=== PATIENT | female | born 1950 | race Caucasian/White ===

== ENCOUNTER 2016-09-05 10:58 | Day surgery (SDC) | payer MEDICARE, OTHER ==
[2016-09-04 10:54] LABS: ABSOLUTE EOSINOPHILS # (AUTO) 0.1 10^3/uL (0.0-0.6); ABSOLUTE LYMPHOCYTES (AUTO) 2.2 10^3/uL (0.5-4.7); ABSOLUTE MONOCYTES (AUTO) 0.5 10^3/uL (0.1-1.4); ABSOLUTE NEUT (AUTO) 3.5 10^3/uL (1.7-8.2); BASOPHILS % (AUTO) 0.5 % (0-2); EOSINOPHILS % (AUTO) 1.4 % (0-6); HEMOGLOBIN 12.4 g/dL (12.0-15.5); HGB HCT DIFFERENCE 1.2; LYMPHOCYTES % (AUTO) 35.2 % (13-45); MEAN CORPUSCULAR HEMOGLOBIN 29.2 pg (27.0-33.4); MEAN CORPUSCULAR HGB CONC 34.4 g/dL (32.0-36.0); MEAN CORPUSCULAR VOLUME 85 fl (80-97); MONOCYTES % (AUTO) 7.7 % (3-13); RED BLOOD COUNT 4.24 10^6/uL (3.72-5.28); RED CELL DISTRIBUTION WIDTH 13.9 % (11.5-14.0); SEGMENTED NEUTROPHILS % (AUTO) 55.2 % (42-78); WHITE BLOOD COUNT 6.4 10^3/uL (4.0-10.5)
[2016-09-04 10:58] LABS: APPEARANCE,URINE CLEAR; BILIRUBIN,URINE NEGATIVE (NEGATIVE); GLUCOSE, URINE NEGATIVE (NEGATIVE); KETONES,URINE NEGATIVE (NEGATIVE); LEUKOCYTE ESTERASE,URINE TRACE (NEGATIVE); NITRITE,URINE NEGATIVE (NEGATIVE); PROTEIN,URINE NEGATIVE (NEGATIVE); URINE SPECIFIC GRAVITY 1.005; UROBILINOGEN,URINE NEGATIVE mg/dL (<2.0)
[2016-09-04 11:27] LABS: ANION GAP 14 (5-19); BLOOD UREA NITROGEN 11 mg/dL (7-20); CARBON DIOXIDE 30 mmol/L (22-30); CHLORIDE 97 mmol/L (98-107); CREATININE RESULT 0.73 mg/dL (0.52-1.25); GLUCOSE 102 mg/dL (75-110); POTASSIUM 4.2 mmol/L (3.6-5.0); SODIUM 140.8 mmol/L (137-145)
--- NOTE | 2016-09-04 18:52 | EKG REPORT ---
SEVERITY:- NORMAL ECG - SINUS RHYTHM : Confirmed by: Bhupinder Perez 04-Sep-2016 18:51:32
[~2016-09-05 10:58] MED LIST: CEFAZOLIN 2 GM/D5W RTU 2 GM/50 ML RTUPB IV PRN; LACTATED RINGERS 1000 ML IV PRN; LIDOCAINE 0.5% INJ-PF (5 MG/ML) 50 ML SDV SUBCUT PRN
[2016-09-05] MEDS ORDERED: LIDOCAINE 1% INJ-PF (10 MG/ML) 30 ML SDV ONE (11:12)
[2016-09-05] MEDS ORDERED: BUPIVACAINE HCL 0.5 % INJ/PF 30 ML SDV ONE (11:12)
[2016-09-05] MEDS ORDERED: ACETAMINOPHEN 100 ML IV ONE (11:23)
[2016-09-05] MEDS ORDERED: FENTANYL CITRATE INJ/PF 100 MCG/2 ML AMPUL ONE (11:23)
[2016-09-05] MEDS ORDERED: PROPOFOL INJ 200 MG/20 ML VIAL IV ONE (11:23)
[2016-09-05] MEDS ORDERED: MIDAZOLAM 2 MG/2 ML INJ ONE (11:23)
[2016-09-05] MEDS ORDERED: DEXMEDETOMIDINE INJ 80 MCG/20 ML VIAL IV ONE (11:23)
[2016-09-05] MEDS ORDERED: FENTANYL CITRATE INJ/PF 100 MCG/2 ML AMPUL IV PRN ×3 (11:27)
[2016-09-05] MEDS ORDERED: MORPHINE SULFATE 10 MG/ML INJ IV PRN ×2 (11:27→12:29)
[2016-09-05] MEDS ORDERED: DIPHENHYDRAMINE HCL 50 MG/ML VIAL IV PRN (11:27)
[2016-09-05] MEDS ORDERED: MEPERIDINE HCL/PF INJ 25 MG/1 ML DISP.SYRIN IV PRN (11:27)
[2016-09-05] MEDS ORDERED: ONDANSETRON HCL INJ/PF 4 MG/2 ML SDV IV PRN ×2 (11:27→12:29)
[2016-09-05] MEDS ORDERED: PROMETHAZINE HCL INJ 25 MG/1 ML VIAL IV PRN ×2 (11:27)
[2016-09-05] MEDS ORDERED: KETAMINE HCL INJ 500 MG/10 ML VIAL ONE (11:52)
[2016-09-05] MEDS ORDERED: HYDROCODONE/ACETAMINOPHEN 5-325 MG TABLET PO PRN (12:29)
--- NOTE | 2016-09-05 12:31 | PDOC DISCHARGE SUMMARY ---
Discharge Summary (SDC) - Discharge Final Diagnosis: LEFT wrist de Quervain's tenosynovitis Date of Surgery: 09/05/16 Discharge Date: 09/05/16 Condition: Good Treatment or Instructions: Schedule Follow Up w/ Dr. Bobby Bridges @ [facility] for Surgery to be seen in 10-14 days or as scheduled [place]: [place]: [place]: May remove dressing on postop day #3, keep incision covered and dry. Ice and elevate May begin finger range of motion attempting to make full fist. Stool softener of choice when on pain medication. Prescriptions: Hydrocodone/Acetaminophen [[place] 5-325 mg Tablet] 1 tab PO Q6 PRN #25 tablet PRN Reason: Discharge Diet: As Tolerated Respiratory Treatments at Home: Deep Breathing/Coughing Discharge Activity: Balance Activity w/Rest, No Lifting Over 10 Pounds, No Lifting/Push/Pulling Report the Following to Your Physician Immediately: Unusual Bleeding, Redness, Swelling, Warmth, Increased Soreness, Numbness, Tingling Sensation
--- NOTE | 2016-09-05 12:31 | Operative Report ---
Operative Report DATE OF SURGERY: 09/05/16 PREOPERATIVE DIAGNOSIS: Left de Quervain's tenosynovitis POSTOPERATIVE DIAGNOSIS: Same plus ganglion cyst first dorsal compartment OPERATION: First dorsal compartment release, tenosynovectomy with excision ganglion cyst SURGEON: BEENA ROWLAND ANESTHESIA: LMAC COMPLICATIONS: None ESTIMATED BLOOD LOSS: Minimal PROCEDURE: Indication for above procedure: 66-year-old female with long-standing history of CMC arthritis presented to my office with left wrist pain. On examination she had findings of CMC arthritis but the majority of her discomfort was consistent with de Quervain's tenosynovitis. At that point we discussed treatment options including CMC arthroplasty with concomitant first dorsal compartment release versus isolated first dorsal compartment release understanding that she may have discomfort from CMC arthritis remaining and ultimately require CMC arthroplasty. After discussing risks and benefits of both the joint decision was made to proceed with isolated first dorsal compartment release. Procedure In Detail: Patient was seen and evaluated in the preoperative holding area. The LEFT upper extremity was initialized and marked. Patient received 2g of Ancef IV for bacterial prophylaxis. Patient was taken back to the operative room where transferred to the operative table and placed under general anesthesia. Once they were adequately anesthetized a nonsterile tourniquet was placed on the upper extremity. A surgical team debriefing was performed ensuring all instrumentation was available, the surgical procedure was discussed with possible concerns reviewed. The upper extremity was prepped with chlorhexidine and alcohol and draped in a sterile fashion. A timeout was done identifying correct patient, procedure and extremity everyone in attendance agree with this and verbalized no concerns. The extremity was exsanguinated the tourniquet was inflated to 250 mmHg. Longitudinal skin incision was made over the first dorsal compartment. Blunt dissection was performed and branches of the superficial radial nerve were identified and protected throughout the entirety of the case. The first dorsal compartment was then identified. And excised along its dorsal margin to avoid instability of the first dorsal compartment tendons. Patient small ganglion cyst was originating from the retinaculum from the first dorsal compartment thus this section of the first dorsal was excised. I then isolated the APL and EPB identifying a sub-compartment for the EPB which was released in its entirety. There was multiple splits of the EPL identified. Tenoynovitis was verified within the first dorsal compartment and tenosynovectomy was performed. Through all wrist range of motion is there was not evidence of first dorsal compartment tendon instability. The tourniquet was then deflated any peripheral vasculature was coagulated with bipolar cautery until the wound was dry. The wound was then irrigated with normal saline. Skin was closed with running 4-0 Monocryl subcuticular suture reinforced with Dermabond and Steri- Strips. Wound was dressed with 4 x 4's and a soft dressing. Sponge counts, instrument counts, needle counts counts were correct. Patient was then awoken from anesthesia. Transferred from the operating room table to the operating room stretcher. There was no intraoperative complications patient tolerated procedure well stable to PACU. Postoperative plan: Patient will follow-up in the office with me in 2 weeks for wound check.
[2016-09-05 14:13] VITALS: BP 126/79
[2016-09-05] MEDS ORDERED: METOCLOPRAMIDE HCL INJ/PF 10 MG/2 ML SDV ONE (14:32)
[2016-09-05] MEDS ORDERED: LIDOCAINE 2% INJ-PF (20 MG/ML) 10 ML AMPUL ONE (14:32)
[2016-09-05] MEDS ORDERED: GLYCOPYRROLATE INJ 0.4 MG/2 ML VIAL ONE (14:32)
[2016-09-05] MEDS ORDERED: ONDANSETRON HCL INJ/PF 4 MG/2 ML SDV ONE (14:32)
[2016-09-05] MEDS ORDERED: KETOROLAC TROMETHAMINE 60 MG/2 ML SDV ONE (14:32)
== END 2016-09-05 14:10 | disposition home or self-care (01) ==
LOC: OROUT 10:58
PROVIDERS: ATTEND Orthopaedic Surgery
PROC: 0LN60ZZ Release Left Lower Arm and Wrist Tendon, Open Approach (ICD-10-PCS; 2016-09-05)
PROC: 0RBV0ZZ Excision of Left Metacarpophalangeal Joint, Open Approach (ICD-10-PCS; principal; 2016-09-05 13:30)
DX: M65.4 Radial styloid tenosynovitis [de Quervain] (principal); M67.432 Ganglion, left wrist; M18.9 Osteoarthritis of first carpometacarpal joint, unspecified; M18.12 Unilateral primary osteoarthritis of first carpometacarpal joint, left hand; E78.00 Pure hypercholesterolemia, unspecified; I10 Essential (primary) hypertension; E11.9 Type 2 diabetes mellitus without complications; Z79.899 Other long term (current) drug therapy; Z88.8 Allergy status to other drugs, medicaments and biological substances; Z79.82 Long term (current) use of aspirin; Z79.1 Long term (current) use of non-steroidal anti-inflammatories (NSAID); Z79.84 Long term (current) use of oral hypoglycemic drugs
CPT/HCPCS: 93005; 36415; 82962; 85025; 80048; 81001; 83036; 71020; 93010; 25111; 25000; J2250; J1885; J3010; J3490 ×3; J2765; J2405; J2704; J0690; J0131; 1810

== ENCOUNTER 2016-09-30 01:40 | Emergency (ER) | payer MEDICARE, OTHER ==
[2016-09-30] MEDS ORDERED: IPRATROPIUM/ALBUTEROL 0.5-2.5 MG/3 ML AMPUL NEB ONE (03:01)
[2016-09-30] MEDS ORDERED: HYDROCODONE/ACETAMINOPHEN 5-325 MG TABLET PO ONE (03:01)
--- NOTE | 2016-09-30 03:03 | ER Document Report ---
ED Respiratory Problem - General Chief Complaint: Cough Stated Complaint: COUGH Time Seen by Provider: 09/30/16 03:01 Notes: Patient is a 66-year-old female that comes emergency department for chief complaint of cough, feeling chills/fever/, and some congestion for the past 3 days. She denies sinus pain, she reports a mildly irritated throat, she states the cough is nonproductive. She does not smoke, she denies a history of smoking , COPD, or asthma. She states she has been exposed to 2 different people who had upper respiratory symptoms. She has had pneumonia in the past, had both pneumonia and influenza vaccines. TRAVEL OUTSIDE OF THE [place] IN LAST 30 DAYS: No - Related Data Allergies/Adverse Reactions: latex [Latex] Allergy (Severe, Verified 06/01/15 08:41) Skin irritation povidone-iodine [From Betadine] Allergy (Intermediate, Verified 05/26/15 08:02) SEVERE RASH Soap [From Betadine] Allergy (Intermediate, Verified 05/26/15 08:02) SEVERE RASH atorvastatin [From Lipitor] Allergy (Verified 08/25/16 11:24) Muscle weakness Past Medical History - General Information source: Patient - Social History Smoking Status: Never Smoker Frequency of alcohol use: None Drug Abuse: None Lives with: Family Family History: Reviewed & Not Pertinent - Past Medical History Cardiac Medical History: Reports: Hx Hypertension Denies: Hx Coronary Artery Disease, Hx Heart Attack Pulmonary Medical History: Reports: Hx Pneumonia - 4 times in my life, last time 10/15 years ago Denies: Hx Asthma, Hx Bronchitis Neurological Medical History: Denies: Hx Cerebrovascular Accident, Hx Seizures Musculoskeltal Medical History: Reports Hx Arthritis - left hand, right knee Surgical Hx: Negative - Immunizations Hx Diphtheria, Pertussis, Tetanus Vaccination: Yes Hx Pneumococcal Vaccination: 02/19/16 Review of Systems - Review of Systems Constitutional: See HPI EENT: No symptoms reported Cardiovascular: No symptoms reported Respiratory: See HPI Gastrointestinal: No symptoms reported Genitourinary: No symptoms reported Female Genitourinary: No symptoms reported Musculoskeletal: No symptoms reported Skin: No symptoms reported Hematologic/Lymphatic: No symptoms reported Neurological/Psychological: No symptoms reported Physical Exam - Vital signs Vitals: Temp Pulse Resp BP Pulse Ox 97.9 F 80 16 132/63 H 96 09/30/16 05:04 09/30/16 05:04 09/30/16 05:04 09/30/16 05:04 09/30/16 05:04 Interpretation: Normal - General General appearance: Appears well, Alert In distress: None - HEENT Head: Normocephalic, Atraumatic Eyes: Normal Conjunctiva: Normal Extraocular movements intact: Yes Eyelashes: Normal Pupils: PERRL Ears: Normal External canal: Normal Tympanic membrane: Normal Nasal: Normal Mouth/Lips: Normal Mucous membranes: Normal Pharynx: Other - noted post nasal drip, otherwise unremarkable Neck: Normal - Respiratory Respiratory status: No respiratory distress Chest status: Nontender Breath sounds: Nonproductive cough - occassional congested sounded cough. No: Decreased air movement, Wheezing Chest palpation: Normal - Cardiovascular Rhythm: Regular. No: Tachycardia Heart sounds: Normal auscultation, S1 appreciated, S2 appreciated Murmur: No - Abdominal Inspection: Normal Distension: No distension Bowel sounds: Normal Tenderness: Nontender. No: Tender, Guarding Organomegaly: No organomegaly - Back Back: Normal, Nontender. No: Tender - Extremities General upper extremity: Normal inspection, Nontender, Normal color, Normal ROM , Normal temperature General lower extremity: Normal inspection, Nontender, Normal color, Normal ROM , Normal temperature, Normal weight bearing. 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 She requested and DuoNeb and stated she felt better afterwards. Mild postnasal drip, no wheezing , no hypoxia, no signs of respiratory distress. Suspect patient does have an upper respiratory virus. Because of patient's history of getting pneumonia, geriatric age, and symptoms of cough and fever patient will be covered with doxycycline antibiotic, discussed follow-up with her provider within the next several days, discussed return precautions, patient states understanding and agreement. - Vital Signs Vital signs: Temp Pulse Resp BP Pulse Ox 97.9 F 80 16 132/63 H 96 09/30/16 05:04 09/30/16 05:04 09/30/16 05:04 09/30/16 05:04 09/30/16 05:04 - Laboratory Result Diagrams: 09/30/16 03:39 09/30/16 03:39 Laboratory results interpreted by me: 09/30/16 09/30/16 03:39 03:39 WBC 10.8 H Hct 35.6 L Sodium 134.5 L Chloride 95 L Glucose 135 H Discharge - Discharge Clinical Impression: Cough Upper respiratory infection Qualifiers: URI type: unspecified URI Qualified Code(s): J06.9 - Acute upper respiratory infection, unspecified Condition: Stable Disposition: HOME, SELF-CARE Additional Instructions: Blood work does not show any acute enteritis, chest x-ray does not show pneumonia at this time. Recommend taking the doxycycline antibiotic, take decongestant, take Tylenol or ibuprofen for chills, drink plenty of fluids, and rest. Follow-up with your primary care provider within the week. Return to emergency department for any concerning or worsening symptoms. Prescriptions: Doxycycline Hyclate 100 mg PO BID #14 capsule Referrals: LAYNE LUONG FNP [Primary Care Provider] - Follow up as needed
[2016-09-30] MEDS ORDERED: ACETAMINOPHEN 325 MG TABLET PO ONE (03:31)
[2016-09-30 03:48] LABS: ABSOLUTE EOSINOPHILS # (AUTO) 0.1 10^3/uL (0.0-0.6); ABSOLUTE LYMPHOCYTES (AUTO) 2.4 10^3/uL (0.5-4.7); ABSOLUTE MONOCYTES (AUTO) 0.8 10^3/uL (0.1-1.4); ABSOLUTE NEUT (AUTO) 7.6 10^3/uL (1.7-8.2); BASOPHILS % (AUTO) 0.4 % (0-2); EOSINOPHILS % (AUTO) 0.7 % (0-6); HEMATOCRIT 35.6 % (36.0-47.0); HEMOGLOBIN 12.2 g/dL (12.0-15.5); LYMPHOCYTES % (AUTO) 21.9 % (13-45); MEAN CORPUSCULAR HEMOGLOBIN 29.4 pg (27.0-33.4); MEAN CORPUSCULAR HGB CONC 34.3 g/dL (32.0-36.0); MEAN CORPUSCULAR VOLUME 86 fl (80-97); MONOCYTES % (AUTO) 7.1 % (3-13); RED BLOOD COUNT 4.14 10^6/uL (3.72-5.28); RED CELL DISTRIBUTION WIDTH 13.9 % (11.5-14.0); SEGMENTED NEUTROPHILS % (AUTO) 69.9 % (42-78); WHITE BLOOD COUNT 10.8 10^3/uL (4.0-10.5)
[2016-09-30 04:41] LABS: ANION GAP 14 (5-19); BLOOD UREA NITROGEN 7 mg/dL (7-20); CALCIUM 9.1 mg/dL (8.4-10.2); CARBON DIOXIDE 26 mmol/L (22-30); CHLORIDE 95 mmol/L (98-107); CREATININE RESULT 0.67 mg/dL (0.52-1.25); GLUCOSE 135 mg/dL (75-110); POTASSIUM 3.7 mmol/L (3.6-5.0); SODIUM 134.5 mmol/L (137-145)
[2016-09-30 05:06] VITALS: BP 132/63
== END 2016-09-30 05:07 | disposition home or self-care (01) ==
LOC: ER 01:40
DX: J06.9 Acute upper respiratory infection, unspecified (principal); R05 Cough; R50.9 Fever, unspecified; R09.81 Nasal congestion
CPT/HCPCS: 94640; 99283; 36415; 85025; 80048; 71020; A9270 ×2; J7620

== ENCOUNTER → 2017-05-18 | Outpatient (CLI) | payer MEDICARE, OTHER ==
--- NOTE | 2017-05-18 13:15 | WOMENS IMAGING REPORT ---
EXAM DESCRIPTION: 3D SCREENING MAMMO BILAT COMPLETED DATE/TIME: 05/18/2017 9:09 am REASON FOR STUDY: SCREENING MAMMO Z12.31 ENCNTR SCREEN MAMMOGRAM FOR MALIGNANT NEOPLASM OF JOEL COMPARISON: 2013 to 2015 TECHNIQUE: Standard craniocaudal and mediolateral oblique views of each breast recorded using digita l acquisition and breast tomosynthesis. LIMITATIONS: None. FINDINGS: No masses, calcifications or architectural distortion. No areas of suspicion. Read with the assistance of CAD. .[facility] - R2 Cenova Version 1.3 .[facility] - R2 Cenova Version 1.3 .[facility] - R2 Cenova Version 2.4 .[facility] - R2 Cenova Version 2.4 .[facility] - R2 Cyber Reverse Engineer Version 9.2 IMPRESSION: NORMAL MAMMOGRAM. BIRADS 1. BREAST DENSITY: b. There are scattered areas of fibroglandular density. BIRAD: 1 NEGATIVE RECOMMENDATION: ROUTINE SCREENING COMMENT: The patient has been notified of the results by letter per SA requirements. Additional no tification policies are in place for contacting patient with suspicious or incomplete findings. Quality ID #225: The [employer] recommends an annual screening mammogram for women aged 40 years or over. This facility utilizes a reminder system to ensure that all patients receive reminder letters, and/or direct phone calls for appointments. This includes reminders for routine scr eening mammograms, diagnostic mammograms, or other Breast Imaging Interventions when appropriate. Th is patient will be placed in the appropriate reminder system. The [employer] (ACR) has developed recommendations for screening MRI of the breast s in certain patient populations, to be used in conjunction with mammography. Breast MRI surveillanc e may be appropriate for women with more than 20% lifetime risk of developing breast cancer as deter mined by genetic testing, significant family history of the disease, or history of mantle radiation f or Hodgkins Disease. ACR Practice Guidelines 2008. DBT Technology DBT is a type of tomographic mammography. With conventional mammography, overlapping breast tissue ma y make lesions difficult to detect, even with good compression. DBT uses an x-ray tube that rotates a round the breast, taking images at different angles. These images are then combined to create thin sl ices of the breast that the radiologist can view as a 3D reconstruction. The [employer] unit can perform full-field digital mammograms (2D imaging); or DBT (3D imaging); or both, in a combination mode that quickly performs both the mammogram and the tomosynthesis scan while the breast is still compressed. PQRS 6045F: Fluoroscopic imaging is not utilized for breast tomosynthesis. TECHNICAL DOCUMENTATION: FINDING NUMBER: (1) ASSESSMENT: (1) JOB ID: [id number] [employer]- All Rights Reserved
== END ==
LOC: WI 07:29
PROVIDERS: ATTEND Nurse Practitioner
DX: Z12.31 Encounter for screening mammogram for malignant neoplasm of breast (principal)
CPT/HCPCS: 77063; G0202; 77067

== ENCOUNTER → 2017-11-07 | Outpatient (CLI) | payer MEDICARE, OTHER ==
--- NOTE | 2017-11-07 12:03 | RADIOLOGY REPORT (SQ) ---
EXAM DESCRIPTION: VENOUS BILATERAL LOWER COMPLETED DATE/TIME: 11/07/2017 11:43 am REASON FOR STUDY: CRAMPS/SPASM, PAIN IN RT LT LEG M25.20 FLAIL JOINT, UNSPECIFIED JOINT M79.605 PAIN IN LEFT LEG M79.604 PAIN IN RIGHT LEG COMPARISON: None. TECHNIQUE: Dynamic and static mora scale and color images acquired of both lower extremity venous sy stems. Selected spectral images acquired with additional compression and augmentation maneuvers. Imag es stored on PACS. LIMITATIONS: None. FINDINGS: RIGHT LEG COMMON FEMORAL AND FEMORAL: Normal phasicity, compression and augmentation. No visualized echogenic m aterial on mora scale. No defects on color images. POPLITEAL: Normal compression and augmentation. No visualized echogenic material on mora scale. No de fects on color images. CALF VESSELS: Normal compression and augmentation. No visualized echogenic material on mora scale. No defects on color image. GSV AND SSV: Normal compression. No visualized echogenic material on mora scale. No defects on color images. ANY DEEP VENOUS INSUFFICIENCY: Not evaluated. ANY EVIDENCE OF POPLITEAL CYST: No. OTHER: No other significant finding. LEFT LEG COMMON FEMORAL AND FEMORAL: Normal phasicity, compression and augmentation. No visualized echogenic m aterial on mora scale. No defects on color images. POPLITEAL: Normal compression and augmentation. No visualized echogenic material on mora scale. No de fects on color images. CALF VESSELS: Normal compression and augmentation. No visualized echogenic material on mora scale. No defects on color images. GSV AND SSV: Normal compression. No visualized echogenic material on mora scale. No defects on color images. ANY DEEP VENOUS INSUFFICIENCY: Not evaluated. ANY EVIDENCE POPLITEAL CYST: No. OTHER: No other significant finding. IMPRESSION: NO EVIDENCE DVT OR SVT IN EITHER LEG. TECHNICAL DOCUMENTATION: JOB ID: [id number] [employer]- All Rights Reserved Reading location - IP/workstation name: [email or web address]
== END ==
LOC: SP 10:27
PROVIDERS: ATTEND Internal Medicine Cardiovascular Disease
DX: R25.2 Cramp and spasm (principal)
CPT/HCPCS: 93970

== ENCOUNTER → 2017-12-01 | Outpatient (CLI) | payer MEDICARE, OTHER | LOC: OD 09:08 | PROVIDERS: ATTEND Internal Medicine Cardiovascular Disease | DX: E78.4 Other hyperlipidemia (principal); E11.9 Type 2 diabetes mellitus without complications; R00.2 Palpitations; R06.09 Other forms of dyspnea; R25.2 Cramp and spasm | CPT/HCPCS: 36415; 82550; 83036; 83735; 83880 ==

== ENCOUNTER → 2017-12-24 | Outpatient (CLI) | payer MEDICARE, OTHER ==
[2017-12-24 10:20] LABS: ALANINE AMINOTRANSFERASE 36 U/L (9-52); ALBUMIN 4.3 g/dL (3.5-5.0); ALKALINE PHOSPHATASE 44 U/L (38-126); ASPARTATE AMINO TRANSFERASE 36 U/L (14-36); BILIRUBIN,DIRECT 0.3 mg/dL (0.0-0.4); BILIRUBIN,TOTAL 0.5 mg/dL (0.2-1.3); CHOLESTEROL 187.83 mg/dL (0-200); TOTAL PROTEIN 7.5 g/dL (6.3-8.2); TRIGLYCERIDES 238 mg/dL (<150)
[2017-12-24 10:30] LABS: DIRECT LDL 122 mg/dL (<100)
[2017-12-24 10:33] LABS: VLDL CHOLESTEROL 47.6 mg/dL (10-31)
== END ==
LOC: OD 09:05
PROVIDERS: ATTEND Internal Medicine Cardiovascular Disease
DX: E78.4 Other hyperlipidemia (principal); R00.2 Palpitations; Z79.899 Other long term (current) drug therapy
CPT/HCPCS: 36415; 80061; 80076; 83735

== ENCOUNTER → 2018-02-09 | Outpatient (CLI) | payer MEDICARE, OTHER ==
[2018-02-09 09:21] LABS: ALANINE AMINOTRANSFERASE 34 U/L (9-52); ALBUMIN 4.4 g/dL (3.5-5.0); ALKALINE PHOSPHATASE 40 U/L (38-126); ASPARTATE AMINO TRANSFERASE 39 U/L (14-36); BILIRUBIN,DIRECT 0.3 mg/dL (0.0-0.4); BILIRUBIN,TOTAL 0.7 mg/dL (0.2-1.3); CHOLESTEROL 190.61 mg/dL (0-200); TOTAL PROTEIN 7.5 g/dL (6.3-8.2); TRIGLYCERIDES 196 mg/dL (<150)
[2018-02-09 09:32] LABS: DIRECT LDL 122 mg/dL (<100)
[2018-02-09 09:36] LABS: VLDL CHOLESTEROL 39.2 mg/dL (10-31)
== END ==
LOC: OD 08:06
PROVIDERS: ATTEND Internal Medicine Cardiovascular Disease
DX: E78.4 Other hyperlipidemia (principal); Z79.899 Other long term (current) drug therapy
CPT/HCPCS: 36415; 80061; 80076

== ENCOUNTER → 2018-05-08 | Outpatient (CLI) | payer MEDICARE, OTHER ==
--- NOTE | 2018-05-08 17:10 | RADIOLOGY REPORT (SQ) ---
EXAM DESCRIPTION: BARIUM SWALLOW ESOPHAGUS COMPLETED DATE/TIME: 05/08/2018 9:20 am REASON FOR STUDY: DYSPHAGIA (R13.10) R13.10 DYSPHAGIA, UNSPECIFIED COMPARISON: None. TECHNIQUE: Under fluoroscopic guidance, patient ingested effervescent granules followed by thick and thin barium. Fluoroscopic spot images and routine radiographic images acquired and stored on PACS. 12 MM BARIUM TABLET GIVEN: Yes. No significant delay in passage. LIMITATIONS: None. FLUOROSCOPY TIME: FLUORO TIME: 2.7 minutes of fluoroscopy was used. 10 images saved to PACS. FINDINGS: NEUROMUSCULAR COORDINATION OF SWALLOW: Normal. No aspiration. ESOPHAGEAL MOTILITY: Normal peristalsis. No esophageal spasm. ESOPHAGEAL MUCOSA: Normal mucosa without masses or ulceration. GASTRO-ESOPHAGEAL JUNCTION: Small sliding hiatal hernia. No gastroesophageal reflux. There was slig ht delay in passage of a 12 mm barium tablet, but it did pass through the GE junction with additional drinks of barium. NON-GI TRACT STRUCTURES: No significant finding. OTHER: No other significant finding. IMPRESSION: SMALL SLIDING HIATAL HERNIA OTHERWISE UNREMARKABLE BARIUM SWALLOW. COMMENT: Quality ID 145: Final reports for procedures using fluoroscopy that document radiation exp osure indices, or exposure time and number of fluorographic images (if radiation exposure indices are not available) TECHNICAL DOCUMENTATION: JOB ID: [id number] [employer]- All Rights Reserved Reading location - IP/workstation name: [email or web address]
== END ==
LOC: RAD 08:30
PROVIDERS: ATTEND Internal Medicine Gastroenterology
DX: R13.10 Dysphagia, unspecified (principal)
CPT/HCPCS: 74220

== ENCOUNTER 2019-05-25 17:54 | Emergency (ER) | payer MEDICARE, OTHER ==
[2019-05-25] MEDS ORDERED: NORMAL SALINE 1000 ML 1,000 ML IV ONE (18:35)
[2019-05-25] MEDS ORDERED: HYDROCODONE/ACETAMINOPHEN 5-325 MG TABLET PO ONE (18:35)
--- NOTE | 2019-05-25 18:38 | ER Document Report ---
ED Medical Screen (RME) - General Chief Complaint: Flank Pain Stated Complaint: PAIN ALL OVER Time Seen by Provider: 05/25/19 18:28 Primary Care Provider: LAYNE LUONG FNP [Primary Care Provider] - Follow up as needed Notes: Patient is a 69-year-old female who presents to the emergency department with a chief complaint of right low back/flank pain. Her pain started this morning. She took ibuprofen this morning, but did not help very much. She ended up taking another 800 mg of ibuprofen running 1:00 this afternoon. Patient does not know if she has any history of kidney stones in the past. Exam: Tenderness noted to right lower back. I have greeted and performed a rapid initial assessment of this patient. A comprehensive ED assessment and evaluation of the patient, analysis of test results and completion of medical decision making process will be conducted by an additional ED providers. TRAVEL OUTSIDE OF THE [place] IN LAST 30 DAYS: No - Related Data Allergies/Adverse Reactions: latex [Latex] Allergy (Severe, Verified 06/01/15 08:41) Skin irritation povidone-iodine [From Betadine] Allergy (Intermediate, Verified 05/26/15 08:02) SEVERE RASH Soap [From Betadine] Allergy (Intermediate, Verified 05/26/15 08:02) SEVERE RASH atorvastatin [From Lipitor] Allergy (Verified 08/25/16 11:24) Muscle weakness simvastatin [From Zocor] Allergy (Verified 05/25/19 18:27) Home Medications: asa. tricor. metformin. senna. micardis. zoloft Past Medical History - Social History Chew tobacco use (# tins/day): No Frequency of alcohol use: None Drug Abuse: None - Past Medical History Cardiac Medical History: Reports: Hx Hypertension Denies: Hx Coronary Artery Disease, Hx Heart Attack Pulmonary Medical History: Reports: Hx Pneumonia - 4 times in my life, last time 10/15 years ago Denies: Hx Asthma, Hx Bronchitis Neurological Medical History: Denies: Hx Cerebrovascular Accident, Hx Seizures Musculoskeltal Medical History: Reports Hx Arthritis - left hand, right knee - Immunizations Hx Diphtheria, Pertussis, Tetanus Vaccination: Yes Physical Exam - Vital signs Vitals: Temp Pulse Resp BP Pulse Ox 97.6 F 81 16 164/72 H 97 05/25/19 17:59 05/25/19 17:59 05/25/19 17:59 05/25/19 17:59 05/25/19 17:59 Course - Vital Signs Vital signs: Temp Pulse Resp BP Pulse Ox 97.6 F 81 16 164/72 H 97 05/25/19 17:59 05/25/19 17:59 05/25/19 17:59 05/25/19 17:59 05/25/19 17:59 Doctor's Discharge - Discharge Referrals: LAYNE LUONG FNP [Primary Care Provider] - Follow up as needed
[2019-05-25 19:10] LABS: ABSOLUTE EOSINOPHILS # (AUTO) 0.1 10^3/uL (0.0-0.6); ABSOLUTE LYMPHOCYTES (AUTO) 2.8 10^3/uL (0.5-4.7); ABSOLUTE MONOCYTES (AUTO) 0.8 10^3/uL (0.1-1.4); ABSOLUTE NEUT (AUTO) 6.9 10^3/uL (1.7-8.2); BASOPHILS % (AUTO) 0.3 % (0-2); EOSINOPHILS % (AUTO) 1.2 % (0-6); HEMATOCRIT 38.1 % (36.0-47.0); HEMOGLOBIN 12.8 g/dL (12.0-15.5); LYMPHOCYTES % (AUTO) 25.9 % (13-45); MEAN CORPUSCULAR HEMOGLOBIN 28.9 pg (27.0-33.4); MEAN CORPUSCULAR HGB CONC 33.5 g/dL (32.0-36.0); MEAN CORPUSCULAR VOLUME 86 fl (80-97); MONOCYTES % (AUTO) 7.9 % (3-13); PLATELET COUNT 348 10^3/uL (150-450); RED BLOOD COUNT 4.41 10^6/uL (3.72-5.28); RED CELL DISTRIBUTION WIDTH 14.8 % (11.5-14.0); SEGMENTED NEUTROPHILS % (AUTO) 64.7 % (42-78); TOTAL CELLS COUNTED % (AUTO) 100 %; WHITE BLOOD COUNT 10.7 10^3/uL (4.0-10.5)
[2019-05-25 19:14] LABS: APPEARANCE,URINE CLOUDY; BILIRUBIN,URINE NEGATIVE (NEGATIVE); COLOR,URINE YELLOW; GLUCOSE, URINE NEGATIVE (NEGATIVE); KETONES,URINE NEGATIVE (NEGATIVE); PROTEIN,URINE 100 mg/dL (NEGATIVE); URINE SPECIFIC GRAVITY 1.028; UROBILINOGEN,URINE NEGATIVE mg/dL (<2.0)
[2019-05-25 19:31] LABS: ALBUMIN 4.3 g/dL (3.5-5.0); ALKALINE PHOSPHATASE 39 U/L (38-126); ANION GAP 9 (5-19); ASPARTATE AMINO TRANSFERASE 26 U/L (14-36); BILIRUBIN,DIRECT 0.2 mg/dL (0.0-0.4); BILIRUBIN,TOTAL 0.3 mg/dL (0.2-1.3); BLOOD UREA NITROGEN 22 mg/dL (7-20); CALCIUM 9.9 mg/dL (8.4-10.2); CARBON DIOXIDE 28 mmol/L (22-30); CHLORIDE 102 mmol/L (98-107); GLUCOSE 130 mg/dL (75-110); POTASSIUM 4.7 mmol/L (3.6-5.0); TOTAL PROTEIN 7.6 g/dL (6.3-8.2)
--- NOTE | 2019-05-25 20:31 | RADIOLOGY REPORT (SQ) ---
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 COMPARISON: None. FINDINGS: There is a nonobstructive bowel gas pattern. Moderate stool throughout the colon. No intraperitoneal free air or air-fluid levels are visualized on the upright view. No radiopaque urinary stones are seen. The lungs are clear. There has been a prior cholecystectomy. IMPRESSION: No acute abdominal findings.
--- NOTE | 2019-05-25 20:49 | ER Document Report ---
ED GI/ - General Chief Complaint: Flank Pain Stated Complaint: PAIN ALL OVER Time Seen by Provider: 05/25/19 18:28 Primary Care Provider: LAYNE LUONG FNP [Primary Care Provider] - Follow up in 3-5 days Mode of Arrival: Ambulatory Information source: Patient Notes: 69-year-old female presented to ED for complaint of right low back/flank pain. She states this started this morning. She states she took her ibuprofen this morning but did not help like it usually does. She states she has had back pain and flank pain in the past but is never felt like this. She states she has not had any blood in the urine but it was a little darker than normal. She does not have any history of kidney stones. She is alert oriented respirations regular nonlabored speaking in full sentences. TRAVEL OUTSIDE OF THE [place] IN LAST 30 DAYS: No - HPI Patient complains to provider of: Flank pain, Other - Low back pain Onset: This morning Timing/Duration: Gradual, Worse Quality of pain: Sharp Severity at maximum: Severe Severity in ED: Moderate Pain Level: 3 Location: Right flank, Low back Menstrual period history: Post-menopausal Associated symptoms: Other - Low back and flank pain Exacerbated by: Sitting, Movement Relieved by: Denies Similar symptoms previously: Yes Recently seen / treated by doctor: No - Related Data Allergies/Adverse Reactions: latex [Latex] Allergy (Severe, Verified 06/01/15 08:41) Skin irritation povidone-iodine [From Betadine] Allergy (Intermediate, Verified 05/26/15 08:02) SEVERE RASH Soap [From Betadine] Allergy (Intermediate, Verified 05/26/15 08:02) SEVERE RASH atorvastatin [From Lipitor] Allergy (Verified 08/25/16 11:24) Muscle weakness simvastatin [From Zocor] Allergy (Verified 05/25/19 18:27) Home Medications: asa. tricor. metformin. senna. micardis. zoloft Past Medical History - General Information source: Patient - Social History Smoking Status: Never Smoker Cigarette use (# per day): No Chew tobacco use (# tins/day): No Frequency of alcohol use: None Drug Abuse: None Lives with: Family Family History: Reviewed & Not Pertinent Patient has suicidal ideation: No Patient has homicidal ideation: No - Past Medical History Cardiac Medical History: Reports: Hx Hypercholesterolemia, Hx Hypertension Pulmonary Medical History: Reports: Hx Pneumonia - 4 times in my life, last time /15 years ago EENT Medical History: Reports: None Neurological Medical History: Reports: None Endocrine Medical History: Reports: None Renal/ Medical History: Reports: None Malignancy Medical History: Reports: None GI Medical History: Reports: Hx Diverticulitis, Hx Colonoscopy, Hx Endoscopy, Other - Hemorrhoids Musculoskeletal Medical History: Reports Hx Arthritis - left hand, right knee , Reports Hx Musculoskeletal Deformity, Reports Hx Musculoskeletal Trauma Skin Medical History: Reports None Psychiatric Medical History: Reports: None Traumatic Medical History: Reports: Hx Fractures - Left index finger Infectious Medical History: Reports: None Past Surgical History: Reports: Hx Cholecystectomy, Hx Hysterectomy, Hx Orthopedic Surgery - Left index finger and back surgery, ganglion cyst from both wrist, Hx Rectal Surgery - Hemorrhoidectomy, Other - Cataracts, lump removed from face - Immunizations Immunizations up to date: Yes Hx Diphtheria, Pertussis, Tetanus Vaccination: Yes - 2016 Hx Pneumococcal Vaccination: 02/19/16 History of Influenza Vaccine for 02/2019 - 07/2019 Season: Yes Review of Systems - Review of Systems Constitutional: No symptoms reported EENT: No symptoms reported Cardiovascular: No symptoms reported Respiratory: No symptoms reported Gastrointestinal: No symptoms reported Genitourinary: Flank pain - Right Female Genitourinary: No symptoms reported Musculoskeletal: Back pain Skin: No symptoms reported Hematologic/Lymphatic: No symptoms reported Neurological/Psychological: No symptoms reported -: Yes All other systems reviewed and negative Physical Exam - Vital signs Vitals: Temp Pulse Resp BP Pulse Ox 97.6 F 81 16 164/72 H 97 05/25/19 17:59 05/25/19 17:59 05/25/19 17:59 05/25/19 17:59 05/25/19 17:59 Interpretation: Normal - General General appearance: Appears well, Alert - HEENT Head: Normocephalic, Atraumatic Eyes: Normal Pupils: PERRL - Respiratory Respiratory status: No respiratory distress Chest status: Nontender Breath sounds: Normal Chest palpation: Normal - Cardiovascular Rhythm: Regular Heart sounds: Normal auscultation Murmur: No - Abdominal Inspection: Normal Distension: No distension Bowel sounds: Normal Tenderness: Nontender Organomegaly: No organomegaly - Back Back: Normal, Tender - Right, CVA tenderness - Right Notes: No signs or symptoms of cauda equina, no saddle anesthesia, no loss control of bowel bladder, no loss of control or sensation to lower extremities. - Extremities General upper extremity: Normal inspection, Nontender, Normal color, Normal ROM, Normal temperature General lower extremity: Normal inspection, Nontender, Normal color, Normal ROM, Normal temperature, Normal weight bearing. 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 I have reevaluated this patient multiple times and no significant life threatening changes are noted. The patient and I have discussed the diagnosis and risks, and we agree with discharging home and close follow-up. We also discussed returning to the Emergency Department immediately if new or worsening symptoms occur with the understanding that symptoms and presentations can change. We have discussed the symptoms which are most concerning (e.g., saddle anesthesia, urinary or bowel incontinence or retention, changing or worsening pain) that necessitate immediate return. - Vital Signs Vital signs: Temp Pulse Resp BP Pulse Ox 97.6 F 67 16 140/66 H 98 05/25/19 21:07 05/25/19 21:07 05/25/19 21:07 05/25/19 21:07 05/25/19 21:07 - Laboratory Result Diagrams: 05/25/19 18:50 05/25/19 18:50 Laboratory results interpreted by me: 05/25/19 05/25/19 05/25/19 18:50 18:50 18:50 WBC 10.7 H RDW 14.8 H BUN 22 H Est GFR ( Amer) 54 L Est GFR (MDRD) Non-Af 44 L Glucose 130 H Urine Protein 100 H Urine Blood SMALL H Leukocyte Esterase Rfl LARGE H - Diagnostic Test Radiology reviewed: Image reviewed, Reports reviewed Discharge - Discharge Clinical Impression: UTI (urinary tract infection) Qualifiers: Urinary tract infection type: acute cystitis Hematuria presence: with hematuria Qualified Code(s): N30.01 - Acute cystitis with hematuria Abdominal pain Qualifiers: Abdominal location: generalized Qualified Code(s): R10.84 - Generalized abdominal pain Condition: Stable Disposition: HOME, SELF-CARE Additional Instructions: URINARY TRACT INFECTION: Your evaluation indicates that you have a urinary tract infection. This is due to germs growing in the bladder. This is a common problem. This infection usually responds quickly to antibiotics. Your antibiotic should be taken exactly as prescribed. Drink plenty of fluids -- three to four quarts a day. Occasionally, a bladder anesthetic will be prescribed to help stop the feeling of urgency until the antibiotic has a chance to clear the infection. This may cause your urine to be dark orange. Certain urine infections require a culture. If the doctor obtained a culture, the results will be back in two days. You should call to see if a change in treatment is needed. A repeat urinalysis after you finish treatment is often recommended. The physician will let you know if further testing is required. Call the doctor if you develop fever, chills, flank pain, inability to urinate, or blood in the urine. ABDOMINAL PAIN: There are many causes of abdominal pain. Pain can mean a serious problem requiring surgery (such as appendicitis). It can also be an innocent problem that goes away on its own (such as a viral infection). Often, time must pass to determine the cause of pain. The physician does not feel that hospitalization is necessary, at present. Things may change within the next 24 hours. Call the doctor or come back for re- examination if any problems occur, such as: (1) Pain that becomes more severe, steady, or becomes concentrated in one specific area. Also, pain that is more severe with movement or coughing. (2) Vomiting that persists or becomes more frequent. (3) Blood in the vomitus, urine, or bowel movements. Blood in the stool may have a tarry or black appearance. (4) Shaking chills or fever greater than 100 degrees F. (5) The abdomen becomes more distended or swollen. (6) Bowel movements cease. (7) Failure to improve as expected. CONSTIPATION: Constipation is a common problem. It is especially likely as you get older. Constipation is a common cause of abdominal pain, but sometimes causes no symptoms at all. Causes of constipation include certain medications, dehydration, diets, inactivity, and low-fiber intake. Rarely, it can be a symptom of underlying disease. The physician has evaluated you for this. Avoid constipation by eating a diet high in fiber, fruits, and vegetables. Drink plenty of liquids. Get regular exercise. If possible, avoid constipating medicines like narcotic pain medication. Some vitamin tablets can cause constipation. Stool softeners may be needed for difficult cases. An excellent stool softener is Konsyl which is available at [employer], and [employer] acquired by [employer]. Just add a teaspoon to a glass of pineapple or orange juice daily or twice a day if needed. Laxatives are useful for occasional constipation. You should use them only when necessary. Too-frequent use can make your bowels dependent on them. Some over the counter laxatives available without prescription are: Milk of Magnesia, 1-2 tablespoons twice a day Dulcolax, 5 mg pill or 10 mg suppository. Citrate of Magnesia, 4-5 ounces a day for a day or two For acute constipation, Fleet's Enemas and Dulcolax suppositories are helpful. Chronic, adjunct faculty for medical terminology use of laxatives or enemas is not a good idea. Your bowel may become dependant on them. You do not need to have a bowel movement every day. Many people do fine with a bowel movement every three or four days. You should call your doctor or return for re-evaluation if you pass blood in the stool, or if you develop fever or increasing abdominal pain. BULK LAXATIVES: Bulk laxatives make the stool softer and bulkier. They're useful for preventing constipation. You can choose between psyllium, methylcellulose, and polycarbophil. They are available without a prescription. Psyllium brand names include Konsyl, Metamucil, Perdiem, Effer-Syllium and Hydrocil. It's available as powder, flavored drink powder, or chewable. The usual dose of psyllium powder is one heaping teaspoon in water each morning, increasing to twice a day if needed. Caribou juice can disguise the slightly grainy texture. Methylcellulose is marketed as Citrucel and other brands. The average dose is two grams in a cup of water one to three times a day. Polycarbophil is marketed as Fiber-Con. Take two tablets with a cup of water one to three times a day. LAXATIVE: A laxative agent has been prescribed for your condition. This should result in passage of stool within 12 hours. Some mild intestinal cramping is common as the hard stool begins to move. You may have loose or runny stools for a short time. Contact your doctor if there is severe cramping, vomiting, or passage of blood. Return for further care if this medicine fails to improve your condition. NITROFURANTOIN (MACRODANTIN, MACROBID): You have received a prescription for nitrofurantoin (Macrodantin). This antibiotic is used for urinary tract infections. Women who are or nursing should notify the physician before taking this medicine. If you have ever had a problem caused by this medication in the past, be sure the physician is aware of it. Common side effects of this medicine include nausea, vomiting, or decreased appetite. Notify your physician if these side effects become severe. Immediately stop this medicine and call the physician if you develop cough, shortness of breath, chest pain, weakness, jaundice (yellow color of the skin and whites of the eyes), or a skin rash. FOLLOW-UP CARE: If you have been referred to a physician for follow-up care, call the physicians office for an appointment as you were instructed or within the next two days. If you experience worsening or a significant change in your symptoms, notify the physician immediately or return to the Emergency Department at any time for re-evaluation. Prescriptions: Nitrofurantoin/Nitrofuran Mac [Macrobid 100 mg Capsule] 1 tab PO BID #20 capsule Forms: Elevated Blood Pressure Referrals: LAYNE LUONG FNP [Primary Care Provider] - Follow up in 3-5 days
[2019-05-25] MEDS ORDERED: MAGNESIUM CITRATE 296 ML BOTTLE PO ONE (20:52)
[2019-05-25] MEDS ORDERED: NITROFURANTOIN MONOHYD/M-CRYST 100 MG CAPSULE PO ONE (20:52)
[2019-05-25 21:13] VITALS: BP 140/66
== END 2019-05-25 21:07 | disposition home or self-care (01) ==
LOC: ER 17:54
DX: N30.01 Acute cystitis with hematuria (principal); R10.84 Generalized abdominal pain; M79.10 Myalgia, unspecified site; M54.5 Low back pain; E78.00 Pure hypercholesterolemia, unspecified; I10 Essential (primary) hypertension; Z91.040 Latex allergy status; Z90.49 Acquired absence of other specified parts of digestive tract; Z90.710 Acquired absence of both cervix and uterus
CPT/HCPCS: 99284; 96360; 36415; 87086; 83690; 85025; 87088; 80053; 81001; 87186; 74022; A9270 ×3; J7030; J3490; J8499

== ENCOUNTER → 2019-05-27 | Outpatient (CLI) | payer MEDICARE, OTHER ==
--- NOTE | 2019-05-27 10:56 | WOMENS IMAGING REPORT ---
EXAM DESCRIPTION: 3D SCREENING MAMMO BILAT COMPLETED DATE/TIME: 05/27/2019 10:22 am REASON FOR STUDY: Z12.31 SCREENING MAMMO Z12.31 ENCNTR SCREEN MAMMOGRAM FOR MALIGNANT NEOPLASM OF B RE COMPARISON: Multiple since 2013 EXAM PARAMETERS: Views: Standard craniocaudal and mediolateral oblique views of each breast recorded using digital acquisition and breast tomosynthesis. Read with the assistance of CAD. .[facility] - [employer] Version 9.2 LIMITATIONS: None. FINDINGS: No suspicious masses, suspicious calcifications or architectural distortion. No areas of c oncern. IMPRESSION: NEGATIVE MAMMOGRAM. BIRADS 1. BREAST DENSITY: a. The breasts are almost entirely fatty. BIRAD: ASSESSMENT: 1 NEGATIVE RECOMMENDATION: ROUTINE SCREENING Please continue yearly bilateral screening mammography/tomosynthesis May 2019 COMMENT: The patient has been notified of the results by letter per [place] requirements. Additional no tification policies are in place for contacting patient with suspicious or incomplete findings. Quality ID #[id number]: The [employer] recommends an annual screening mammogram for women aged 40 years or over. This facility utilizes a reminder system to ensure that all patients receive reminder letters, and/or direct phone calls for appointments. This includes reminders for routine scr eening mammograms, diagnostic mammograms, or other Breast Imaging Interventions when appropriate. Th is patient will be placed in the appropriate reminder system. TECHNICAL DOCUMENTATION: FINDING NUMBER: (1) ASSESSMENT: (1) JOB ID: [id number] [employer]- All Rights Reserved Reading location - IP/workstation name: [email or web address]
== END ==
LOC: WI 09:50
PROVIDERS: ATTEND Nurse Practitioner
DX: Z12.31 Encounter for screening mammogram for malignant neoplasm of breast (principal)
CPT/HCPCS: 77063; 77067

== ENCOUNTER 2020-01-04 13:33 | Emergency (ER) | payer MEDICARE, OTHER ==
--- NOTE | 2020-01-04 14:31 | ER Document Report ---
ED Medical Screen (RME) - General Chief Complaint: Flank Pain Stated Complaint: FLANK PAIN,URINARY ISSUES Time Seen by Provider: 01/04/20 14:27 Primary Care Provider: LAYNE LUONG FNP [Primary Care Provider] - Follow up as needed Mode of Arrival: Ambulatory Information source: Patient Notes: 69-year-old female presents to ED for complaint of right flank and pelvic pain. She states she has had the cramping to the right abdomen and flank that started a week ago. She states she has had sharp pain since yesterday that is radiated of back to the back. She states that she has been drinking a lot of water but has not had anything more than a few dribbles since 11:00 this morning. She does not have a history of kidney stones. Patient is alert oriented resp irations regular nonlabored. She is moving around like she is having a lot of pain. Will order blood urine and CT noncontrasted. If she is not able to void at this time I will add a Montgomery catheter. I have greeted and performed a rapid initial assessment of this patient. A comprehensive ED assessment and evaluation of the patient, analysis of test results and completion of medical decision making process will be conducted by an additional ED providers. TRAVEL OUTSIDE OF THE [place] IN LAST 30 DAYS: No - Related Data Allergies/Adverse Reactions: latex [Latex] Allergy (Severe, Verified 01/04/20 14:20) Skin irritation povidone-iodine [From Betadine] Allergy (Intermediate, Verified 01/04/20 14:20) SEVERE RASH Soap [From Betadine] Allergy (Intermediate, Verified 01/04/20 14:20) SEVERE RASH atorvastatin [From Lipitor] Allergy (Verified 01/04/20 14:20) Muscle weakness simvastatin [From Zocor] Allergy (Verified 01/04/20 14:20) Past Medical History - Past Medical History Cardiac Medical History: Reports: Hx Hypercholesterolemia, Hx Hypertension Denies: Hx Coronary Artery Disease, Hx Heart Attack Pulmonary Medical History: Reports: Hx Pneumonia - 4 times in my life, last time 10/15 years ago Denies: Hx Asthma, Hx Bronchitis Neurological Medical History: Denies: Hx Cerebrovascular Accident, Hx Seizures GI Medical History: Reports: Hx Diverticulitis, Hx Colonoscopy, Hx Endoscopy Musculoskeltal Medical History: Reports Hx Arthritis - left hand, right knee , Reports Hx Musculoskeletal Deformity, Reports Hx Musculoskeletal Trauma Traumatic Medical History: Reports: Hx Fractures - Left index finger Past Surgical History: Reports: Hx Cholecystectomy, Hx Hysterectomy, Hx Orthopedic Surgery - Left index finger and back surgery, ganglion cyst from both wrist, Hx Rectal Surgery - Hemorrhoidectomy, Other - Cataracts, lump removed from face - Immunizations Immunizations up to date: Yes Hx Diphtheria, Pertussis, Tetanus Vaccination: Yes - 2016 Physical Exam - Vital signs Vitals: Temp Pulse Resp BP Pulse Ox 97.8 F 95 18 171/93 H 100 01/04/20 13:44 01/04/20 13:44 01/04/20 13:44 01/04/20 13:44 01/04/20 13:44 Course - Vital Signs Vital signs: Temp Pulse Resp BP Pulse Ox 97.8 F 95 18 171/93 H 100 01/04/20 13:44 01/04/20 13:44 01/04/20 13:44 01/04/20 13:44 01/04/20 13:44 Doctor's Discharge - Discharge Referrals: LAYNE LUONG FNP [Primary Care Provider] - Follow up as needed
[2020-01-04 15:16] LABS: ABSOLUTE EOSINOPHILS # (AUTO) 0.1 10^3/uL (0.0-0.6); EOSINOPHILS % (AUTO) 1.4 % (0-6); HEMOGLOBIN 12.8 g/dL (12.0-15.5); PLATELET COUNT 332 10^3/uL (150-450); TOTAL CELLS COUNTED % (AUTO) 100 %
[2020-01-04 15:25] LABS: ALBUMIN 4.2 g/dL (3.5-5.0); ALKALINE PHOSPHATASE 42 U/L (38-126); ANION GAP 8 (5-19); ASPARTATE AMINO TRANSFERASE 33 U/L (14-36); BILIRUBIN,TOTAL 0.4 mg/dL (0.2-1.3); BLOOD UREA NITROGEN 18 mg/dL (7-20); CALCIUM 9.3 mg/dL (8.4-10.2); CARBON DIOXIDE 27 mmol/L (22-30); CHLORIDE 100 mmol/L (98-107); GLUCOSE 106 mg/dL (75-110); POTASSIUM 4.5 mmol/L (3.6-5.0); TOTAL PROTEIN 7.5 g/dL (6.3-8.2)
--- NOTE | 2020-01-04 15:26 | RADIOLOGY REPORT (SQ) ---
EXAM DESCRIPTION: CT ABD/PELVIS NO ORAL OR IV IMAGES COMPLETED DATE/TIME: 01/04/2020 3:07 pm REASON FOR STUDY: right flank abdomen pain COMPARISON: None. TECHNIQUE: CT scan of the abdomen and pelvis performed without intravenous or oral contrast. Images reviewed with lung, soft tissue, and bone windows. Reconstructed coronal and sagittal MPR images revi ewed. All images stored on PACS. All CT scanners at this facility use dose modulation, iterative reconstruction, and/or weight based d osing when appropriate to reduce radiation dose to as low as reasonably achievable (ALARA). [facility]: Dose Right [facility]: CareDose [facility]: Dose Right [facility]: Teradose 4D [facility]: [employer] RADIATION DOSE: CT Rad equipment meets quality standard of care and radiation dose reduction techniq ues were employed. CTDIvol: 9.4 mGy. DLP: 514 mGy-cm.mGy. LIMITATIONS: None. FINDINGS: LOWER CHEST: No significant findings. No nodules or infiltrates. NON-CONTRASTED LIVER, SPLEEN, ADRENALS: Evaluation limited by lack of IV contrast. No identified sign ificant masses. Hepatic steatosis. PANCREAS: No masses. No peripancreatic inflammatory changes. GALLBLADDER: Surgically absent. RIGHT KIDNEY AND URETER: No suspicious masses. Assessment limited by lack of IV contrast. No signif icant calcifications. No hydronephrosis or hydroureter. LEFT KIDNEY AND URETER: No suspicious masses. Assessment limited by lack of IV contrast. No signifi cant calcifications. No hydronephrosis or hydroureter. AORTA AND RETROPERITONEUM: No aneurysm. No retroperitoneal masses or adenopathy. BOWEL AND PERITONEAL CAVITY: No obvious masses or inflammatory changes. No free fluid. APPENDIX: Normal. PELVIS, BLADDER, AND ABDOMINAL WALL:No abnormal masses. No free fluid. Bladder normal. BONES: Degenerative changes are seen of the hips and spine. No suspicious lytic or blastic osseous l esions. OTHER: No other significant finding. IMPRESSION: No evidence of urolithiasis or obstructive uropathy. No acute intra-abdominal infectiou s/inflammatory process. COMMENT: Quality ID # [id number]: Final reports with documentation of one or more dose reduction techniques (e.g., Automated exposure control, adjustment of the mA and/or kV according to patient size, use of iterative reconstruction technique) TECHNICAL DOCUMENTATION: JOB ID: [id number] 2010 [employer]- All Rights Reserved Reading location - IP/workstation name: [email or web address]
[2020-01-04 15:33] LABS: ABSOLUTE LYMPHOCYTES (AUTO) 3.1 10^3/uL (0.5-4.7); ABSOLUTE MONOCYTES (AUTO) 0.7 10^3/uL (0.1-1.4); ABSOLUTE NEUT (AUTO) 3.3 10^3/uL (1.7-8.2); BASOPHILS % (AUTO) 0.4 % (0-2); HEMATOCRIT 37.5 % (36.0-47.0); LYMPHOCYTES % (AUTO) 42.6 % (13-45); MEAN CORPUSCULAR HEMOGLOBIN 29.5 pg (27.0-33.4); MEAN CORPUSCULAR HGB CONC 34.1 g/dL (32.0-36.0); MEAN CORPUSCULAR VOLUME 87 fl (80-97); MONOCYTES % (AUTO) 9.6 % (3-13); RED BLOOD COUNT 4.33 10^6/uL (3.72-5.28); WHITE BLOOD COUNT 7.2 10^3/uL (4.0-10.5)
--- NOTE | 2020-01-04 16:40 | ER Document Report ---
ED General - General Chief Complaint: Flank Pain Stated Complaint: FLANK PAIN,URINARY ISSUES Time Seen by Provider: 01/04/20 14:27 Primary Care Provider: LAYNE LUONG FNP [Primary Care Provider] - Follow up as needed Mode of Arrival: Ambulatory Information source: Patient Notes: 01/04/20 14:22 - ED [facility]: [id number] : 1950 Patient Age: 69 pt states she has been drinking 2 bottles of water an hour. states she has not been able to urinate. reports last time she was able to urinate was around 11 am and it was a very small amount. denies hx of kidney stones. pt is alert and oriented. resp are even and unlabored. Initialized on 01/04/20 14:22 - END OF NOTE ED Medical Screen ([facility] notes - General Chief Complaint: Flank Pain Stated Complaint: FLANK PAIN,URINARY ISSUES Time Seen by Provider: 01/04/20 14:27 Primary Care Provider: LAYNE LUONG FNP [Primary Care Provider] - Follow up as needed Mode of Arrival: Ambulatory Information source: Patient Notes: 69-year-old female presents to ED for complaint of right flank and pelvic pain. She states she has had the cramping to the right abdomen and flank that started a week ago. She states she has had sharp pain since yesterday that is radiated of back to the back. She states that she has been drinking a lot of water but has not had anything more than a few dribbles since 11:00 this morning. She does not have a history of kidney stones. Patient is alert oriented respirations regular nonlabored. She is moving around like she is having a lot of pain. Will order blood urine and CT noncontrasted. If she is not able to void at this time I will add a Montgomery catheter. my notes 69-year-old female arrives with chief complaint of having right inguinal pain that is quite severe 10 out of 10. Patient reports she has had diverticulitis in the past on the left side and this pain is more severe than that type pain. She is never had any kidney stones in the past and no one in the family has had any kidney stones. She has been drinking multiple bottles of bottled water to number around 9 over12 hour time. Patient reports she has had a history of thyroid nodules and is seen by Dr. Peters who does biopsies on these for the last 4 weeks. In 1985 she had a left anterior lymph node resected which was benign and around 6 weeks ago started having some right anterior triangle sternocleidomastoid area nodule around 2 cm diameter. She had a thyroid biopsy done by Dr. Peters because of this. Patient denies any headaches denies any dysuria and denies any hematuria or purulent urine. Patient denies any trauma or overuse or vaginal discharge or arthritis problems. CT scan was negative today as read by radiologist. Urine had UTI by lab and CBC chemistry within normal limits. Patient takes meclizine for vertigo on a nightly basis. She sees a ear nose throat doctor in the same building as Dr. Peters in [place]. TRAVEL OUTSIDE OF THE [place] IN LAST 30 DAYS: No - HPI Onset: Other - x 1 week Onset/Duration: Sudden, Persistent, Worse - over 24 hours very severe Severity: Severe Pain Level: 4 Associated symptoms: Other - Leg cramps but patient takes Motrin for these at nighttime. Exacerbated by: Movement Relieved by: Denies Similar symptoms previously: No Recently seen / treated by doctor: No - Related Data Allergies/Adverse Reactions: latex [Latex] Allergy (Severe, Verified 01/04/20 14:20) Skin irritation povidone-iodine [From Betadine] Allergy (Intermediate, Verified 01/04/20 14:20) SEVERE RASH Soap [From Betadine] Allergy (Intermediate, Verified 01/04/20 14:20) SEVERE RASH atorvastatin [From Lipitor] Allergy (Verified 01/04/20 14:20) Muscle weakness simvastatin [From Zocor] Allergy (Verified 01/04/20 14:20) Home Medications: diabetic. htn. cholesterol. Past Medical History - General Information source: Patient - Social History Smoking Status: Never Smoker Cigarette use (# per day): No Chew tobacco use (# tins/day): No Smoking Education Provided: No Frequency of alcohol use: None Drug Abuse: None Lives with: Family Family History: Reviewed & Not Pertinent Patient has suicidal ideation: No Patient has homicidal ideation: No - Past Medical History Cardiac Medical History: Reports: Hx Hypercholesterolemia, Hx Hypertension Denies: Hx Coronary Artery Disease, Hx Heart Attack Pulmonary Medical History: Reports: Hx Pneumonia - 4 times in my life, last time 10/15 years ago Denies: Hx Asthma, Hx Bronchitis Neurological Medical History: Denies: Hx Cerebrovascular Accident, Hx Seizures GI Medical History: Reports: Hx Diverticulitis, Hx Colonoscopy, Hx Endoscopy Musculoskeletal Medical History: Reports Hx Arthritis - left hand, right knee , Reports Hx Musculoskeletal Deformity, Reports Hx Musculoskeletal Trauma Traumatic Medical History: Reports: Hx Fractures - Left index finger Past Surgical History: Reports: Hx Cholecystectomy, Hx Hysterectomy, Hx Orthopedic Surgery - Left index finger and back surgery, ganglion cyst from both wrist, Hx Rectal Surgery - Hemorrhoidectomy, Other - Cataracts, lump removed from face - Immunizations Immunizations up to date: Yes Hx Diphtheria, Pertussis, Tetanus Vaccination: Yes - 2016 Hx Pneumococcal Vaccination: 02/19/16 Review of Systems - Review of Systems Constitutional: No symptoms reported EENT: No symptoms reported Cardiovascular: No symptoms reported Respiratory: No symptoms reported Gastrointestinal: See HPI, Abdominal pain Genitourinary: No symptoms reported Female Genitourinary: No symptoms reported Musculoskeletal: No symptoms reported Skin: No symptoms reported Hematologic/Lymphatic: No symptoms reported Neurological/Psychological: No symptoms reported Physical Exam - Vital signs Vitals: Temp Pulse Resp BP Pulse Ox 97.8 F 95 18 171/93 H 100 01/04/20 13:44 01/04/20 13:44 01/04/20 13:44 01/04/20 13:44 01/04/20 13:44 Interpretation: Hypertensive - HEENT Head: Normocephalic, Atraumatic Eyes: Normal Pupils: PERRL Pharynx: Normal Neck: Lymphadenopathy - Right sided anterior triangle, Thyroid nodule - Respiratory Respiratory status: No respiratory distress Chest status: Nontender Breath sounds: Normal Chest palpation: Normal - Cardiovascular Rhythm: Regular Heart sounds: Normal auscultation Murmur: No - Abdominal Inspection: Normal Distension: No distension Bowel sounds: Hyperactive Tenderness: Tender - Right lower quadrant on palpation Organomegaly: No organomegaly - Rectal Hemorrhoids: Other - deferred - Genitourinary Bimanuel exam: Other - deferred - Back Back: Normal - Extremities General upper extremity: Normal inspection General lower extremity: Normal inspection - Neurological Neuro grossly intact: Yes Cognition: Normal Orientation: AAOx4 Thelma Coma Scale Eye Opening: Spontaneous [place] Coma Scale Verbal: Oriented [place] Coma Scale Motor: Obeys Commands [place] Coma Scale Total: 15 Speech: Normal Motor strength normal: LUE, RUE, LLE, RLE Sensory: Normal - Psychological Associated symptoms: Normal affect - Skin Skin Temperature: Warm Skin Moisture: Dry Course - Vital Signs Vital signs: Temp Pulse Resp BP Pulse Ox 97.8 F 95 18 171/93 H 100 01/04/20 14:22 01/04/20 13:44 01/04/20 13:44 01/04/20 13:44 01/04/20 13:44 - Laboratory Result Diagrams: 01/04/20 14:52 01/04/20 14:52 Laboratory results interpreted by me: 01/04/20 01/04/20 14:52 16:20 Sodium 134.8 L Est GFR (MDRD) Non-Af 55 L Urine Protein 30 H Urine Urobilinogen 2.0 H Ur Leukocyte Esterase LARGE H - Diagnostic Test Radiology reviewed: Reports reviewed - I followed r ureter to bladder ? calcification UVJ Discharge - Discharge Clinical Impression: Kidney stone on right side UTI (urinary tract infection) Qualifiers: Urinary tract infection type: acute cystitis Hematuria presence: without hematuria Qualified Code(s): N30.00 - Acute cystitis without hematuria Abdominal pain Qualifiers: Abdominal location: unspecified location Qualified Code(s): R10.9 - Unspecified abdominal pain Condition: Good Disposition: HOME, SELF-CARE Instructions: Urinary Tract Infection ([facility]) Additional Instructions: Follow-up with personal doctor; return to ER as needed ;take medicines as directed; encourage fluids; Prescriptions: Levofloxacin [Levaquin 500 mg Tablet] 500 mg PO DAILY #10 tablet Referrals: LAYNE LUONG FNP [Primary Care Provider] - Follow up as needed
[2020-01-04 16:51] LABS: APPEARANCE,URINE SLIGHTLY-CLOUDY; BILIRUBIN,URINE NEGATIVE (NEGATIVE); COLOR,URINE YELLOW; GLUCOSE, URINE NEGATIVE (NEGATIVE); KETONES,URINE NEGATIVE (NEGATIVE); LEUKOCYTE ESTERASE,URINE LARGE (NEGATIVE); NITRITE,URINE NEGATIVE (NEGATIVE); PROTEIN,URINE 30 mg/dL (NEGATIVE); URINE SPECIFIC GRAVITY 1.021
[2020-01-04] MEDS ORDERED: LEVOFLOXACIN 500 MG TABLET PO ONE (17:27)
[2020-01-04 17:40] VITALS: BP 143/91
== END 2020-01-04 17:41 | disposition home or self-care (01) ==
LOC: ER 13:33
DX: N30.00 Acute cystitis without hematuria (principal); N20.0 Calculus of kidney; R25.2 Cramp and spasm; R10.813 Right lower quadrant abdominal tenderness; E04.1 Nontoxic single thyroid nodule; E78.00 Pure hypercholesterolemia, unspecified; I10 Essential (primary) hypertension; Z87.19 Personal history of other diseases of the digestive system; Z98.890 Other specified postprocedural states; Z79.899 Other long term (current) drug therapy; R59.0 Localized enlarged lymph nodes; Z91.040 Latex allergy status; Z88.3 Allergy status to other anti-infective agents; Z88.8 Allergy status to other drugs, medicaments and biological substances
CPT/HCPCS: 99284; 36415; 83690; 85025; 80053; 81001; 74176; A9270